=== PATIENT | male | born 1975 | race African-American/Black ===

== ENCOUNTER 2019-01-13 19:11 | Emergency (ER) | payer SELFPAY ==
[2019-01-13] MEDS ORDERED: LIDOCAINE 1% INJ (10 MG/ML) 10 ML MDV INJ ONE (20:57)
[2019-01-13] MEDS ORDERED: CEFTRIAXONE INJ 250 MG VIAL IM ONE (20:57)
[2019-01-13] MEDS ORDERED: AZITHROMYCIN 250 MG TABLET PO ONE (20:57)
--- NOTE | 2019-01-13 21:02 | ER Document Report ---
HPI <KESHATHAI - Last Filed: 01/13/19 21:40> - HPI Pain Level: Denies Context: 43 male presents to the emergency department with concern for possible STD exposure after he started developing penile discharge this morning. Patient states that he had sex with a new partner and had anal sex as well. Patient is unsure if his partner has any other high risk partners. Patient states that he noted some purulent discharge from the tip of his penis it happened twice first when he urinated first thing in the morning then later in the day. Patient is able to urinate without difficulty, denies any testicular pain, swelling, or any lesions on his testicles penis or meatus. Patient denies fevers. No other complaints - REPRODUCTIVE Reproductive: DENIES: : <LIZBETH WHEAT - Last Filed: 01/14/19 08:59> - HPI Time Seen by Provider: 01/13/19 20:49 Past Medical History - Social History Smoking Status: Current Every Day Smoker Chew tobacco use (# tins/day): No Frequency of alcohol use: Rare Drug Abuse: None Family History: None Patient has suicidal ideation: No Patient has homicidal ideation: No <LIZBETH WHEAT - Last Filed: 01/14/19 08:59> Vertical Provider Document - CONSTITUTIONAL Notes: PHYSICAL EXAMINATION: Reviewed vital signs and charting by RN GENERAL: Alert, interacts well. No acute distress. HEAD: Normocephalic, atraumatic. EYES: Pupils equal and round. Extraocular movements intact. ENT: Oral mucosa moist, tongue midline. NECK: Full range of motion. Trachea midline. : Mild purulent discharge from the urethra, no erythema, no lesions, no edema, no tenderness to palpation of the testicles EXTREMITIES: Moves all 4 extremities spontaneously. No edema, No cyanosis. PSYCH: Normal affect, normal mood. SKIN: Warm, dry, normal turgor. No rashes or lesions noted. - INFECTION CONTROL TRAVEL OUTSIDE OF THE [place] IN LAST 30 DAYS: No <LIZBETH WHEAT - Last Filed: 01/14/19 08:59> Course - Re-evaluation Re-evalutation: 01/13/19 21:40 Patient's urinalysis negative for urinary tract infection. Patient was prophylactically treated. Will discharge the patient home. - Vital Signs Vital signs: Temp Pulse Resp BP Pulse Ox 98.6 F 96 20 154/108 H 95 01/13/19 19:33 01/13/19 20:53 01/13/19 19:33 01/13/19 19:33 01/13/19 19:33 - Laboratory Laboratory results interpreted by me: 01/13/19 21:40 Laboratory 01/13/19 20:55 Urine Color YELLOW Urine Appearance CLEAR Urine pH 5.0 Ur Specific [place] 1.017 Urine Protein NEGATIVE Urine Glucose (UA) NEGATIVE Urine Ketones NEGATIVE Urine Blood NEGATIVE Urine Nitrite NEGATIVE Urine Bilirubin NEGATIVE Urine Urobilinogen NEGATIVE Ur Leukocyte Esterase NEGATIVE Urine WBC (Auto) 4 Urine RBC (Auto) 2 Urine Ascorbic Acid NEGATIVE <THAI REBOLLEDO - Last Filed: 01/13/19 21:40> - Re-evaluation Re-evalutation: 01/13/19 21:02 Urinalysis and gonorrhea chlamydia urine obtained. We will treat patient pr ophylactically with Rocephin 250 mg IM once and a azithromycin 1 g once p.o. Urinalysis is pending. - Vital Signs Vital signs: Temp Pulse Resp BP Pulse Ox 98.6 F 96 20 154/108 H 95 01/13/19 19:33 01/13/19 20:53 01/13/19 19:33 01/13/19 19:33 01/13/19 19:33 <LIZBETH WHEAT - Last Filed: 01/14/19 08:59> Discharge <THAI REBOLLEDO - Last Filed: 01/13/19 21:40> <LIZBETH WHEAT - Last Filed: 01/14/19 08:59> - Discharge Clinical Impression: Possible exposure to STD Condition: Good Disposition: HOME, SELF-CARE Additional Instructions: You were seen for penile discharge and possible STD exposure. You were treated with 2 antibiotics that will cover for chlamydia and gonorrhea. If either of these were positive it is curative treatment. You will also need to tell your partner if your results are positive so they can get treated to prevent reinfection. Please return to the emergency department if you continue to have abnormal penile discharge, worsening pain, you are unable to pee, you start to develop high fevers, or you have any other concerning symptoms.
[2019-01-13 21:39] LABS: APPEARANCE,URINE CLEAR; BILIRUBIN,URINE NEGATIVE (NEGATIVE); COLOR,URINE YELLOW; GLUCOSE, URINE NEGATIVE (NEGATIVE); KETONES,URINE NEGATIVE (NEGATIVE); LEUKOCYTE ESTERASE,URINE NEGATIVE (NEGATIVE); NITRITE,URINE NEGATIVE (NEGATIVE); PROTEIN,URINE NEGATIVE (NEGATIVE); URINE SPECIFIC GRAVITY 1.017; UROBILINOGEN,URINE NEGATIVE mg/dL (<2.0)
[2019-01-13 22:50] VITALS: BP 155/96
[2019-01-13 23:06] LABS: CHLAM PCR NOT DETECTED (NOT DETECT)
== END 2019-01-13 22:50 | disposition home or self-care (01) ==
LOC: ER 19:11
DX: Z20.2 Contact with and (suspected) exposure to infections with a predominantly sexual mode of transmission (principal); R36.9 Urethral discharge, unspecified; F17.200 Nicotine dependence, unspecified, uncomplicated
CPT/HCPCS: 81001; 87491; 87591; J0696; 96372; 99283